=== PATIENT | female | born 1990 | race Caucasian/White ===

== ENCOUNTER 2017-12-15 19:51 | Emergency (ER) | payer OTHER ==
[~2017-12-15] VITALS: Ht 170.2 cm; Wt 136.0 kg
[2017-12-15] MEDS ORDERED: NORCO 5/3251 TABLET PO (23:50)
[2017-12-16 00:09] VITALS: BP 138/81
== END 2017-12-16 00:11 | disposition home or self-care (01) ==
LOC: EME 19:51
DX: S93.601A Unspecified sprain of right foot, initial encounter (principal); S93.401A Sprain of unspecified ligament of right ankle, initial encounter; X50.1XXA Overexertion from prolonged static or awkward postures, initial encounter; W18.39XA Other fall on same level, initial encounter; Y93.01 Activity, walking, marching and hiking; M77.31 Calcaneal spur, right foot
CPT/HCPCS: 73610; 73630; 99281; 99284

== ENCOUNTER 2018-02-04 17:39 | Emergency (ER) | payer OTHER ==
[~2018-02-04] VITALS: Ht 170.2 cm; Wt 159.0 kg
[~2018-02-04 17:39] MED LIST: NORCO 5/3251 TABLET PO
[2018-02-04] MEDS ORDERED: MOTRIN800 MG PO (19:44)
[2018-02-04] MEDS ORDERED: VALIUM5 MG PO (19:44)
[2018-02-04] MEDS ORDERED: NORCO 7.5/321 TABLET PO (19:44)
[2018-02-04 20:06] VITALS: BP 149/87
== END 2018-02-04 20:08 | disposition home or self-care (01) ==
LOC: EME 17:39 → EXP 17:39
DX: S39.92XA Unspecified injury of lower back, initial encounter (principal); M51.36 Other intervertebral disc degeneration, lumbar region; S83.401A Sprain of unspecified collateral ligament of right knee, initial encounter; M23.91 Unspecified internal derangement of right knee; X50.9XXA Other and unspecified overexertion or strenuous movements or postures, initial encounter; Y93.89 Activity, other specified; Z72.0 Tobacco use
CPT/HCPCS: 93971; 99281; 99284; J3010

== ENCOUNTER 2018-03-09 02:23 | Emergency (ER) | payer OTHER ==
[~2018-03-09] VITALS: Ht 170.2 cm; Wt 171.0 kg
[~2018-03-09 02:23] MED LIST changes: +MOTRIN800 MG PO; +NORCO 7.5/321 TABLET PO; +VALIUM5 MG PO
[2018-03-09 03:24] LABS: HEMATOCRIT 42.3 % (36.0-46.0); MCH 29.7 PG (29.0-34.0); MCHC 33.1 G/DL (30.0-36.0); MCV 89.8 FL (83-99); PLATELET COUNT 223 K/uL (156-360); RBC DIS.WIDTH-CV 13.2 % (11.8-14.6); RBC DIS.WIDTH-SD 43.5 % (39-53); RED BLOOD COUNT 4.71 M/uL (3.80-5.20); WHITE BLOOD COUNT 7.5 K/uL (4.1-10.2)
[2018-03-09 03:35] LABS: APPEARANCE SL.HAZY ((CLEAR)); BILIRUBIN NEGATIVE; BLOOD NEGATIVE; COLOR YELLOW ((YELLOW)); GLUCOSE (STRIP) NEGATIVE; KETONES NEGATIVE; LEUKOCYTES NEGATIVE; NITRITE NEGATIVE; PROTEIN (STRIP) NEGATIVE; SPECIFIC GRAVITY 1.027 (1.000-1.030); UROBILINOGEN 0.2 MG/DL (0.2-1.0)
[2018-03-09 03:36] LABS: CHLORIDE 106 mEq/L (99-109); SODIUM 137 mEq/L (136-147)
[2018-03-09 03:37] LABS: GLUCOSE 145 mg/dL (70-99)
[2018-03-09 03:40] LABS: BACTERIA RARE /HPF; EPITHELIAL CELLS 3+ /HPF; MUCUS TRACE /LPF; RED BLOOD CELLS 0-5 /HPF (0-5); UCUL ADDED? NO; WHITE BLOOD CELLS 0-5 /HPF (0-5)
[2018-03-09 03:41] LABS: CREATININE 0.9 mg/dL (0.6-1.3); GFR ESTIMATE (CALCULATED) > 59 mL/min/
[2018-03-09 03:42] LABS: UREA NITROGEN (BUN) 11 mg/dL (9-23)
[2018-03-09 03:53] LABS: QUANTITATIVE HCG 766.9 MIU/ML
[2018-03-09] MEDS ORDERED: FLEXERIL10 MG PO (05:56)
[2018-03-09] MEDS ORDERED: LIDODERM 5% P1 PATCH TD (05:56)
[2018-03-09 06:26] VITALS: BP 153/90
== END 2018-03-09 06:26 | disposition home or self-care (01) ==
LOC: EME 02:23
PROVIDERS: Emergency Medicine
DX: S39.012A Strain of muscle, fascia and tendon of lower back, initial encounter (principal); Z33.1 Pregnant state, incidental; X50.1XXA Overexertion from prolonged static or awkward postures, initial encounter; J45.909 Unspecified asthma, uncomplicated; F17.200 Nicotine dependence, unspecified, uncomplicated
CPT/HCPCS: 76801; 80048; 81003; 84702; 85027; 99281; 99284

== ENCOUNTER 2018-04-29 05:45 | Emergency (ER) | payer OTHER ==
[~2018-04-29] VITALS: Ht 167.6 cm; Wt 169.6 kg
[~2018-04-29 05:45] MED LIST changes: +FLEXERIL10 MG PO; +LIDODERM 5% P1 PATCH TD
[2018-04-29 06:08] LABS: HEMATOCRIT 43.1 % (36.0-46.0); HEMOGLOBIN 14.7 G/DL (11.9-15.5); MCH 29.7 PG (29.0-34.0); MCHC 34.1 G/DL (30.0-36.0); MCV 87.1 FL (83-99); PLATELET COUNT 196 K/uL (156-360); RBC DIS.WIDTH-CV 13.2 % (11.8-14.6); RED BLOOD COUNT 4.95 M/uL (3.80-5.20); WHITE BLOOD COUNT 6.8 K/uL (4.1-10.2)
[2018-04-29 06:23] LABS: ALBUMIN 3.8 g/dL (3.2-4.8); CHLORIDE 106 mEq/L (99-109); POTASSIUM 3.8 mEq/L (3.7-5.4); SODIUM 137 mEq/L (136-147)
[2018-04-29 06:25] LABS: GLUCOSE 119 mg/dL (70-99); TOTAL PROTEIN 6.7 g/dL (6.4-8.3)
[2018-04-29 06:27] LABS: TOTAL BILIRUBIN 0.5 mg/dL (0.0-1.0)
[2018-04-29 06:29] LABS: ALKALINE PHOSPHATASE 57 IU/L (3-129); CREATININE 0.9 mg/dL (0.6-1.3); GFR ESTIMATE (CALCULATED) > 59 mL/min/
[2018-04-29 06:30] LABS: AST (GOT) 14 IU/L (2-34); UREA NITROGEN (BUN) 13 mg/dL (9-23)
[2018-04-29 06:32] LABS: ALT (GPT) 15 IU/L (3-49)
[2018-04-29 06:38] LABS: QUANTITATIVE HCG 14577.1 MIU/ML
[2018-04-29 08:47] LABS: APPEARANCE CLEAR ((CLEAR)); BILIRUBIN NEGATIVE; BLOOD MODERATE; COLOR YELLOW ((YELLOW)); GLUCOSE (STRIP) NEGATIVE; KETONES NEGATIVE; LEUKOCYTES NEGATIVE; NITRITE NEGATIVE; PROTEIN (STRIP) NEGATIVE; SPECIFIC GRAVITY 1.029 (1.000-1.030); UROBILINOGEN 0.2 MG/DL (0.2-1.0)
[2018-04-29 08:50] LABS: BACTERIA NONE SEEN /HPF; EPITHELIAL CELLS RARE /HPF; MUCUS TRACE /LPF; RED BLOOD CELLS 15-20 /HPF (0-5); UCUL ADDED? NO; WHITE BLOOD CELLS 0-5 /HPF (0-5)
[2018-04-29] MEDS ORDERED: PERCOCET 5/31 TABLET PO (09:44)
[2018-04-29] MEDS ORDERED: ZOFRAN4 MG PO (09:45)
[2018-04-29 10:00] VITALS: BP 107/87
== END 2018-04-29 10:20 | disposition home or self-care (01) ==
LOC: EME 05:45
PROVIDERS: Emergency Medicine
DX: O03.4 Incomplete spontaneous abortion without complication (principal); R10.9 Unspecified abdominal pain; E66.01 Morbid (severe) obesity due to excess calories; Z68.44 Body mass index [BMI] 60.0-69.9, adult; J45.909 Unspecified asthma, uncomplicated; F17.200 Nicotine dependence, unspecified, uncomplicated
CPT/HCPCS: 76801; 80053; 81003; 84702; 85027; 86900; 86901; 99281; 99285; J3010; J7030

== ENCOUNTER 2018-05-03 10:58 | Emergency (ER) | payer OTHER ==
[~2018-05-03] VITALS: Ht 167.6 cm; Wt 172.5 kg
[~2018-05-03 10:58] MED LIST changes: +PERCOCET 5/31 TABLET PO; +ZOFRAN4 MG PO
[2018-05-03 11:36] LABS: HEMATOCRIT 35.8 % (36.0-46.0); MCH 30.2 PG (29.0-34.0); MCHC 34.4 G/DL (30.0-36.0); PLATELET COUNT 183 K/uL (156-360); RBC DIS.WIDTH-CV 13.6 % (11.8-14.6); RBC DIS.WIDTH-SD 43.6 % (39-53); RED BLOOD COUNT 4.07 M/uL (3.80-5.20); WHITE BLOOD COUNT 6.8 K/uL (4.1-10.2)
[2018-05-03 11:37] LABS: HEMOGLOBIN 12.3 G/DL (11.9-15.5)
[2018-05-03 12:10] LABS: QUANTITATIVE HCG 629.8 MIU/ML
[2018-05-03 12:38] LABS: CHLORIDE 105 MEQ/L (99-109); POTASSIUM 4.3 MEQ/L (3.7-5.4); SODIUM 141 MEQ/L (136-147)
[2018-05-03 12:44] LABS: CREATININE 0.7 MG/DL (0.6-1.3); GFR ESTIMATE (CALCULATED) > 59 mL/min/; GLUCOSE 92 mg/dL (70-99); UREA NITROGEN (BUN) 6 mg/dL (9-23)
[2018-05-03 15:25] VITALS: BP 117/82
== END 2018-05-03 15:25 | disposition home or self-care (01) ==
LOC: EME → EDBD 10:58 → EME 10:58
PROVIDERS: Emergency Medicine
DX: O03.4 Incomplete spontaneous abortion without complication (principal); J45.909 Unspecified asthma, uncomplicated; F17.200 Nicotine dependence, unspecified, uncomplicated
CPT/HCPCS: 76856; 80048; 84702; 85027; 86900; 86901; 99281; 99285; J2270

== ENCOUNTER 2018-05-18 11:01 | Emergency (ER) | payer OTHER ==
[~2018-05-18] VITALS: Ht 167.6 cm; Wt 168.1 kg
[2018-05-18 11:59] VITALS: BP 131/96
== END 2018-05-18 12:03 | disposition left against medical advice (07) ==
LOC: EME 11:01
DX: N93.9 Abnormal uterine and vaginal bleeding, unspecified (principal); Z53.21 Procedure and treatment not carried out due to patient leaving prior to being seen by health care provider
CPT/HCPCS: 81003; 84702; 85027